=== PATIENT | male | born 1985 | race Caucasian/White ===

== ENCOUNTER 2025-08-24 00:46 | Emergency (ER) | payer OTHER ==
[~2025-08-24] VITALS: Ht 180.3 cm; Wt 95.3 kg
[2025-08-24 00:58] VITALS: BP 166/104; TEMP 97.6; O2SAT 99
[2025-08-24] MEDS ORDERED: ACETAMINOPHEN 325 MG TABLET ONE (01:14)
[2025-08-24] MEDS: ACETAMINOPHEN 325 MG TABLET PO ONE ×2 (01:17)
== END 2025-08-24 01:18 | disposition home or self-care (01) ==
LOC: ER 00:51
DX: Z02.89 Encounter for other administrative examinations (principal); I10 Essential (primary) hypertension